=== PATIENT | male | born 1970 | race Caucasian/White ===

== ENCOUNTER 2021-03-29 18:17 | Emergency (ER) | payer OTHER ==
[2021-03-29 20:30] LABS: BILIRUBIN NEGATIVE (NEGATIVE); BLOOD NEGATIVE Ery/uL (NEGATIVE); CLARITY CLEAR (CLEAR); COLOR YELLOW (YELLOW); GLUCOSE (U) NORMAL (NORMAL); LEUKOCYTES NEGATIVE Leu/uL (NEGATIVE); NITRITE NEGATIVE (NEGATIVE); PROTEIN TRACE (LOW) mg/dL (NEGATIVE); UROBILINOGEN 0.2 mg/dL (0.2-1.0); pH 6.5 (5.0-9.0)
[2021-03-29 20:34] LABS: AMPHETAMINES NEGATIVE (NEGATIVE); BARBITURATES NEGATIVE (NEGATIVE); ECSTASY (MDMA) NEGATIVE (NEGATIVE); MARIJUANA (THC) NEGATIVE (NEGATIVE); METHADONE NEGATIVE (NEGATIVE); OPIATES POSITIVE (NEGATIVE); OXYCODONE NEGATIVE (NEGATIVE)
[2021-03-29 20:37] LABS: BASOPHIL 0.4 % (0-2); EOSINOPHIL 0.1 % (0-5); HCT 40.6 % (42.0-52.0); HGB 13.3 g/dl (13.2-18.0); MCHC 32.8 g/dL (32.0-36.0); MCV 88.5 fL (78.0-100.0); MONOCYTE 6.8 % (0-12); MPV 9.6 fL (6.0-9.5); NEUTROPHIL 85.3 % (41-80); NRBC 0; PLT 241 K/uL (150-400); RBC 4.59 M/uL (4.70-6.00); RDW 14.2 % (11.5-14.0); WBC 17.1 K/uL (4.0-10.5)
[2021-03-29 20:51] LABS: ALBUMIN 3.6 g/dL (3.4-5.0); ALKALINE PHOSHATASE 92 U/L (46-116); ALT 39 U/L (16-63); AMYLASE 81 U/L (25-115); AST 23 U/L (15-37); BILIRUBIN - TOTAL 0.6 mg/dL (0.2-1.0); BUN 9 mg/dL (7-18); BUN/CREAT RATIO (CALC) 11.8 RATIO; CHLORIDE 97 mmol/L (98-107); CO2 (BICARBONATE) 27 mmol/L (21-32); CREATININE 0.76 mg/dL (0.67-1.17); GLOBULIN (CALCULATION) 4.2 g/dL; GLUCOSE 156 mg/dL (74-106); LIPASE 855 U/L (73-393); POTASSIUM 3.9 mmol/L (3.5-5.1); TOTAL PROTEIN 7.8 g/dL (6.4-8.2)
[2021-03-29 20:54] LABS: INFLUENZA A NAA NEGATIVE (NEGATIVE)
[2021-03-29 21:00] LABS: CORONAVIRUS 2019 SARS-COV-2 POSITIVE (NEGATIVE)
[2021-03-29] MEDS ORDERED: ONDANSETRON HCL4 MG PO (22:35)
[2021-03-29] MEDS ORDERED: HYDROCODON-ACE1 EAC2 PO (22:35)
== END 2021-03-29 22:54 | disposition home or self-care (01) ==
LOC: FER 18:17
PROVIDERS: Nurse Practitioner Family
DX: U07.1 COVID-19 (principal); K85.90 Acute pancreatitis without necrosis or infection, unspecified; F17.210 Nicotine dependence, cigarettes, uncomplicated; J44.9 Chronic obstructive pulmonary disease, unspecified
CPT/HCPCS: 36415; 80053; 80305; 81003; 82150; 83605; 83690; 84145; 85025; 87040; G0480; J1170; J1885; J2405; J7030; U0002